=== PATIENT | male | born 1960 | race Caucasian/White ===

== ENCOUNTER 2017-03-12 10:26 | Observation (INO) | payer OTHER ==
[~2017-03-12] VITALS: Ht 180.3 cm; Wt 89.1 kg
[2017-03-12] MEDS ORDERED: ONDANSETRON 2MG/ML, 2ML IVPush ONE (11:00)
[2017-03-12] MEDS ORDERED: KETOROLAC 30 MG/1 ML IVPush ONE (11:00)
[2017-03-12] MEDS ORDERED: SODIUM CHLORIDE FLUSH 10ML SYR IVF ONE (11:00)
[2017-03-12] MEDS ORDERED: CARISOPRODOL 350 MG TABLET PO ONE (11:00)
[2017-03-12] MEDS ORDERED: SODIUM CHLORIDE 0.9% 1,000ML IV ONE (11:00)
[2017-03-12] MEDS ORDERED: HYDROmorphone 2 MG/ML, 1ML ONE ×2 (11:05→19:53)
[2017-03-12] MEDS ORDERED: ONDANSETRON 2MG/ML, 2ML ONE (11:05)
[2017-03-12] MEDS ORDERED: CARISOPRODOL 350 MG TABLET ONE (11:05)
[2017-03-12] MEDS: HYDROmorphone 1 MG/ML, 1ML IVPush PRN ×2 (11:15→19:55)
[2017-03-12] MEDS ORDERED: KETOROLAC 30 MG/1 ML ONE (11:21)
[2017-03-12] MEDS ORDERED: BLOOD PRESSURE PILL (11:25)
[2017-03-12] MEDS ORDERED: CYCL-259 PO (11:27)
[2017-03-12] MEDS ORDERED: DIAZEPAM 5 MG/ML, 2ML IV ONE (12:30)
[2017-03-12] MEDS ORDERED: DEXAMETHASONE 4 MG TABLET PO ONE (12:30)
[2017-03-12] MEDS ORDERED: DEXAMETHASONE 4 MG TABLET ONE (12:33)
[2017-03-12 13:06] LABS: BASOPHILS # (AUTO) 0.03 x10^3/uL (0-0.1); BASOPHILS % (AUTO) 1 % (0-1); EOSINOPHILS # (AUTO) 0.08 x10^3/uL (0-0.4); EOSINOPHILS % (AUTO) 1 % (1-7); LYMPHOCYTES # (AUTO) 2.62 x10^3/uL (1-3.4); LYMPHOCYTES % (AUTO) 46 % (22-44); MD NO; MEAN CORPUSCULAR HEMOGLOBIN 36.1 pg (27.5-34.5); MEAN CORPUSCULAR HGB CONC 34.7 g/dL (33.2-36.2); MEAN CORPUSCULAR VOLUME 104.2 fL (81-97); MEAN PLATELET VOLUME 8.8 fL (7.4-10.4); MONOCYTES % (AUTO) 7 % (2-9); NEUTROPHILS # (AUTO) 2.62 x10^3/uL (1.8-6.8); NEUTROPHILS % (AUTO) 46 % (42-75); PLATELET COUNT 115 x10^3/uL (130-400); RED BLOOD COUNT 4.21 x10^6/uL (4.38-5.82); RED CELL DISTRIBUTION WIDTH 11.8 % (9.4-14.8)
[2017-03-12 13:15] LABS: ALBUMIN 3.2 g/dL (3.4-5.0); ANION GAP 11 mmol/L (5-15); CALCIUM 8.3 mg/dL (8.5-10.1); CHLORIDE 104 mmol/L (98-107); CREATININE 0.57 mg/dL (0.7-1.3)
[2017-03-12] MEDS ORDERED: ENALAPRILAT 1.25 MG/ML, 2ML IVPush PRN (13:30)
[2017-03-12] MEDS ORDERED: ONDANSETRON ODT 4 MG PO PRN (13:30)
[2017-03-12] MEDS ORDERED: BISACODYL 10 MG SUPP PR PRN (13:30)
[2017-03-12] MEDS ORDERED: LABETALOL 5MG/ML, 20ML IVPush PRN (13:30)
[2017-03-12] MEDS ORDERED: DOCUSATE 100 MG CAPSULE PO PRN (13:30)
[2017-03-12] MEDS: ACETAMINOPHEN 325 MG TABLET PO SCH ×2 (15:53→19:30)
[2017-03-12] MEDS: NICOTINE 7 MG/24 HR PATCH.TD24 TD SCH (15:54)
[2017-03-12] MEDS: KETOROLAC 30 MG/1 ML IVPush SCH ×2 (15:54→20:02)
[2017-03-12] MEDS ORDERED: IBUPROFEN 800 MG TABLET PO SCH (16:00)
[2017-03-12 20:00] VITALS: BP 136/71
[2017-03-13] MEDS: KETOROLAC 30 MG/1 ML IVPush SCH ×4 (00:02→20:08)
[2017-03-13] MEDS: DIPHENHYDRAMINE 25 MG CAPSULE PO PRN (00:02)
[2017-03-13] MEDS: METHOCARBAMOL 750 MG TABLET PO PRN ×2 (00:09→17:30)
[2017-03-13 00:42] LABS: CULTURE INDICATED? NO; MICROSCOPIC NOT IND
[2017-03-13] MEDS: ACETAMINOPHEN 325 MG TABLET PO SCH ×4 (01:30→20:08)
[2017-03-13 02:58] VITALS: BP 148/81
[2017-03-13 05:37] LABS: MEAN CORPUSCULAR HEMOGLOBIN 36.1 pg (27.5-34.5); MEAN CORPUSCULAR VOLUME 103.1 fL (81-97); MEAN PLATELET VOLUME 8.6 fL (7.4-10.4); PLATELET COUNT 99 x10^3/uL (130-400); RED BLOOD COUNT 4.14 x10^6/uL (4.38-5.82); RED CELL DISTRIBUTION WIDTH 11.5 % (9.4-14.8)
[2017-03-13 05:50] LABS: ANION GAP 8 mmol/L (5-15); CALCIUM 8.4 mg/dL (8.5-10.1); CHLORIDE 106 mmol/L (98-107)
[2017-03-13 06:15] LABS: BASOPHILS # (AUTO) 0.01 x10^3/uL (0-0.1); BASOPHILS % (AUTO) 0 % (0-1); EOSINOPHILS % (AUTO) 0 % (1-7); LYMPHOCYTES # (AUTO) 0.77 x10^3/uL (1-3.4); LYMPHOCYTES % (AUTO) 10 % (22-44); MD SCAN; MONOCYTES # (AUTO) 0.18 x10^3/uL (0.2-0.8); MONOCYTES % (AUTO) 2 % (2-9); NEUTROPHILS # (AUTO) 6.91 x10^3/uL (1.8-6.8); NEUTROPHILS % (AUTO) 88 % (42-75)
[2017-03-13] MEDS: OMEPRAZOLE 20 MG CAPSULE.DR PO SCH (08:09)
[2017-03-13 08:10] VITALS: BP 156/88
[2017-03-13] MEDS: predniSONE 50MG TABLET PO SCH (08:10)
[2017-03-13 14:13] VITALS: BP 117/67
[2017-03-13] MEDS: NICOTINE 7 MG/24 HR PATCH.TD24 TD SCH (15:53)
[2017-03-13 18:56] VITALS: BP 150/88
[2017-03-14] MEDS: KETOROLAC 30 MG/1 ML IVPush SCH ×2 (02:21→09:24)
[2017-03-14] MEDS: ACETAMINOPHEN 325 MG TABLET PO SCH ×2 (02:22→09:25)
[2017-03-14 02:27] VITALS: BP 149/74
[2017-03-14] MEDS: DIPHENHYDRAMINE 25 MG CAPSULE PO PRN (02:36)
[2017-03-14] MEDS: METHOCARBAMOL 750 MG TABLET PO PRN ×2 (02:36→09:24)
[2017-03-14 05:43] LABS: HCT (SEDRATE) 41.2 % (39.2-51.8); MEAN CORPUSCULAR HEMOGLOBIN 36.2 pg (27.5-34.5); MEAN CORPUSCULAR HGB CONC 34.6 g/dL (33.2-36.2); MEAN CORPUSCULAR VOLUME 104.6 fL (81-97); MEAN PLATELET VOLUME 8.5 fL (7.4-10.4); PLATELET COUNT 90 x10^3/uL (130-400); RED BLOOD COUNT 3.94 x10^6/uL (4.38-5.82); RED CELL DISTRIBUTION WIDTH 11.8 % (9.4-14.8)
[2017-03-14 06:00] LABS: CHLORIDE 108 mmol/L (98-107)
[2017-03-14 06:22] LABS: BASOPHILS # (AUTO) 0.09 x10^3/uL (0-0.1); BASOPHILS % (AUTO) 1 % (0-1); EOSINOPHILS # (AUTO) 0.01 x10^3/uL (0-0.4); EOSINOPHILS % (AUTO) 0 % (1-7); LYMPHOCYTES # (AUTO) 1.87 x10^3/uL (1-3.4); LYMPHOCYTES % (AUTO) 24 % (22-44); MD SCAN; MONOCYTES # (AUTO) 0.52 x10^3/uL (0.2-0.8); MONOCYTES % (AUTO) 7 % (2-9); NEUTROPHILS # (AUTO) 5.32 x10^3/uL (1.8-6.8); NEUTROPHILS % (AUTO) 68 % (42-75); SEDIMENTATION RATE 113 mm/hr (0-10)
[2017-03-14 06:43] LABS: ANION GAP 10 mmol/L (5-15); CALCIUM 8.4 mg/dL (8.5-10.1); CREATININE 0.76 mg/dL (0.7-1.3)
[2017-03-14 07:58] VITALS: BP 127/77
[2017-03-14] MEDS: predniSONE 50MG TABLET PO SCH (09:24)
[2017-03-14] MEDS: OMEPRAZOLE 20 MG CAPSULE.DR PO SCH (09:24)
[2017-03-14] MEDS ORDERED: OMEP-110 PO (11:58)
[2017-03-14] MEDS ORDERED: ACET325T14 PO (11:58)
[2017-03-14] MEDS ORDERED: METH4TAB2 PO (11:58)
== END 2017-03-14 14:42 | disposition home or self-care (01) ==
LOC: ED 11:00 → EDIP 12:49 → INTOOBSV 12:49 → 3NE 14:09
PROVIDERS: ADMIT Internal Medicine; ATTEND Internal Medicine
DX: M48.061 Spinal stenosis, lumbar region without neurogenic claudication (principal); M51.16 Intervertebral disc disorders with radiculopathy, lumbar region; I10 Essential (primary) hypertension; F10.21 Alcohol dependence, in remission; E87.6 Hypokalemia; E88.09 Other disorders of plasma-protein metabolism, not elsewhere classified; D53.9 Nutritional anemia, unspecified; Z72.0 Tobacco use
CPT/HCPCS: 36415; 80048; 81003; 82040; 85025; 85651; 96361; 96374; 96375; 96376; 97112; 97161; 97530; 99285; G0378; G8978; G8979; G8980; J1170; J1885; J2405; J3360; J7030; J7512; Q0163

== ENCOUNTER 2017-03-23 08:52 | Emergency (ER) | payer OTHER ==
[~2017-03-23] VITALS: Ht 180.3 cm; Wt 90.0 kg
[~2017-03-23 08:52] MED LIST: ACET325T14 PO; BLOOD PRESSURE PILL; CYCL-259 PO; METH4TAB2 PO; OMEP-110 PO
[2017-03-23] MEDS ORDERED: DIAZEPAM 5 MG/ML, 2ML IVPush ONE (09:30)
[2017-03-23] MEDS ORDERED: SODIUM CHLORIDE FLUSH 10ML SYR IVF ONE (09:30)
[2017-03-23] MEDS ORDERED: KETOROLAC 30 MG/1 ML IVPush ONE (09:30)
[2017-03-23] MEDS ORDERED: HYDROmorphone 2 MG/ML, 1ML ONE ×4 (09:37→11:24)
[2017-03-23] MEDS ORDERED: KETOROLAC 30 MG/1 ML ONE (09:38)
[2017-03-23] MEDS ORDERED: DIAZEPAM 5 MG/ML, 2ML ONE (09:47)
[2017-03-23] MEDS: HYDROmorphone 1 MG/ML, 1ML IVPush PRN ×2 (10:14→11:27)
[2017-03-23 11:36] VITALS: BP 135/82
== END 2017-03-23 11:59 | disposition home or self-care (01) ==
LOC: ED 09:39
DX: M48.061 Spinal stenosis, lumbar region without neurogenic claudication (principal); I10 Essential (primary) hypertension; E11.9 Type 2 diabetes mellitus without complications; Z79.899 Other long term (current) drug therapy
CPT/HCPCS: 96374; 96375; 96376; 99284; J1170; J1885; J3360; J7512

== ENCOUNTER 2017-12-08 08:11 | Emergency (ER) | payer OTHER ==
[~2017-12-08] VITALS: Ht 180.3 cm; Wt 91.3 kg
[2017-12-08] MEDS ORDERED: KETOROLAC 30 MG/1 ML ONE (08:51)
[2017-12-08] MEDS ORDERED: ONDANSETRON ODT 4 MG ONE (08:51)
[2017-12-08] MEDS ORDERED: OXYcodone/APAP 5/325MG TABLET ONE (08:51)
[2017-12-08] MEDS ORDERED: METHOCARBAMOL 750 MG TABLET ONE (08:51)
[2017-12-08] MEDS ORDERED: KETOROLAC 30 MG/1 ML IM ONE (09:00)
[2017-12-08] MEDS ORDERED: OXYcodone/APAP 5/325MG TABLET PO ONE (09:00)
[2017-12-08] MEDS ORDERED: ONDANSETRON ODT 4 MG PO ONE (09:00)
[2017-12-08] MEDS ORDERED: METHOCARBAMOL 750 MG TABLET PO ONE (09:00)
[2017-12-08 09:42] VITALS: BP 168/96
== END 2017-12-08 09:49 | disposition home or self-care (01) ==
LOC: ED 09:34
DX: M54.42 Lumbago with sciatica, left side (principal); I10 Essential (primary) hypertension; E11.9 Type 2 diabetes mellitus without complications; J45.909 Unspecified asthma, uncomplicated
CPT/HCPCS: 96372; 99284; J1885; Q0162